=== PATIENT | female | born 1985 | race Caucasian/White ===

== ENCOUNTER 2025-08-04 13:56 | Outpatient (REF) | payer MEDICAID, SELFPAY ==
[2025-08-04 16:06] LABS: MANUAL DIFF FLAG NO
[2025-08-04 16:10] LABS: Hematocrit 43.4 % (37.0-47.0); Hemoglobin 14.4 g/dl (12.0-16.0); Imm Gran Abs Auto 0.02 X10*3/uL (0.00-0.03); Imm Gran Pct Auto 0.3 % (0.0-0.4); Lymphocytes Absolute Auto 2.0 X10*3/uL (1.2-4.9); Mean Corpuscular HGB Conc 33.2 g/dl (31.0-35.0); Mean Corpuscular Hemoglobin 31.0 pg (27.0-33.0); Mean Corpuscular Volume 93.5 fL (80.0-98.0); NRBC Abs Auto 0.000 X10*3/uL (0.0-0.012); NRBC Pct Auto 0.0 /100WBC (0.0-0.2); Platelet Count 224 X10*3/uL (160-400); Red Blood Count 4.64 X10*6/uL (4.20-5.50); White Blood Count 7.9 X10*3/uL (4.8-10.8)
[2025-08-04 16:21] LABS: Alanine Aminotransferase 48 U/L (0-31); Albumin Level 4.6 g/dL (3.5-5.0); Alkaline Phosphatase 79 U/L (39-117); Anion Gap 14 (12-20); Aspartate Amino Transferase 47 U/L (5-31); Blood Urea Nitrogen 16 mg/dL (9-16); Calcium 9.4 mg/dL (8.4-10.2); Carbon Dioxide 27 mmol/L (22-29); Chloride 103 mmol/L (96-108); Cholesterol 216 mg/dL (<200); Estimated Glomerular Filt Rate > 60; HDL Cholesterol 79 mg/dL (>40); Potassium 4.4 mmol/L (3.3-5.1); Sodium 140 mmol/L (135-145); Total Protein 7.6 g/dL (6.5-8.0); Triglycerides 246 mg/dL (<150)
--- OUTSIDE RECORDS SUMMARY | 2025-08-04 17:10 | XMS_ITS | Encounter Summary ---
Author Organization [employer] Address [address] [facility] [facility] [address] [place] [address] Care Team Providers Care Washer Hand Name Role Phone Annmarie Patel COMMUNITY DEVELOPMENT AIDE Primary Care Provider [phone] Reason for Visit * Reason Onset Date Comments CHW - New Patient Assistance 05/11/2025 Encounter Details Date Type Department Care Team ([facility] st Contact Info) Description 05/11/2025 Telephone [facility] [address] [place], [place] [phone] Arnaldo River MD [address] [place] [address] CHW - New Patient Assistance Social History Tobacco Use Types Packs/Day Years Used Date Smoking Tobacco: Never Assessed Comments Unknown Sex and Gender Information Value Date Recorded Sex Assigned at Female 07/26/2025 10:30 AM EDT Legal Sex Female 4:30 PM EDT Gender Identity Female 07/26/2025 10:30 AM EDT Sexual Orientation Straight 07/26/2025 10 :30 AM EDT documented as of this encounter Miscellaneous Notes * Telephone Encounter - Prema Gabriel - 05/12/2025 10:19 AM EDT Patient added to [facility] New Patient wait list as 05-12-2025 * Telephone Encounter - Brendon Sesay - 05/11/2025 4:30 PM EDT TC from caller requesting NEW PATIENT visit . DX : EYE ULCER Medical Concern: Twan gave her the wrong contact and it causes a bacterial infection. Insurance name : [email or web address] Location : [facility] Demographic information updated documented in this encounter Plan of Treatment Upcoming Encounters Date Type Department Care Team (Late st Contact Info) Description 08/12/2025 1:00 PM EST Clinical Support [facility] [address] [place] [address] documented as of this encounter Visit Diagnoses Not on filedocumented in this encounter Care Teams Washer Hand Relationship Specialty Start Date End Date Annmarie Patel FNP [address] [place] [address] PCP - General Family Medicine 07/27/25 documented as of this encounter
--- OUTSIDE RECORDS SUMMARY | 2025-08-04 17:10 | XMS_ITS | Clinical Summary ---
Author Organization [facility] Address [address] [facility] [address] [place] [address] Care Team Providers Care Cell Stripper Final Name Role Phone Annmarie Patel Primary Care Provider [phone] Allergies Active Allergy Reactions Criticality Noted Date Comments Penicillins Hives 07/27/2025 Medications Blood Pressure kitIndications:E levated blood pressure reading 1 Units 2 times daily. 1 kit 07/27/2025 Active loratadine (Claritin) 10 MG tablet Take 1 tablet (10 mg) by mouth Once per day. 90 tablet 3 07/27/2025 Active Active Problems No known active problems Encounters Date Type Department Care Team Description 07/27/2025 10:30 AM EDT Office Visit [facility] [address] [place] [phone] Annmarie Patel FNP Adult wellness visit (Primary Dx); Elevated blood pressure reading; Non-seasonal allergic rhinitis, unspecified trigger; Anxiety and depression; Corneal ulcer, unspecified laterality 07/27/2025 Travel 07/26/2025 Telephone [facility] [address] [place] [address] Annmarie Patel FNP Chart Prep 07/20/2025 Patient Outreach [facility] [address] [place] [address] Annmarie Patel FNP Pre-visit Planning (SDOH negative. Tobacco screening negative. ) 07/20/2025 Travel 07/02/2025 Population Health Risk Score [facility] ([facility]) Department [address] [phone] Provider, Population Health Generic 05/11/2025 Telephone [facility] [address] [place] [address] Arnaldo River MD CHW - New Patient Assistance from Last 3 Months Family History Medical History Relation Name Comments Cancer Father Colon cancer Father's Brother Relation Name Status Comments Father Father's Brother Social History Tobacco Use Types Packs/Day Years Used Date Smoking Tobacco: Never Passive Smoke Exposure: Never Smokeless Tobacco: Never Tobacco Cessation:Counseling Given: Not Answered Alcohol Use Standard Drinks/Week Comments Yes 2 (1 standard drink = 0.6 oz pur e alcohol) weekends Depression Answer Date Recorded Patient Health Questionnaire-9 Score 5 07/27/2025 Patient Health Questionnaire-9 Score 5 07/27/2025 Last PHQ-9: Questionnaire Data Not on file 1 Housing Stability Answer Date Recorded What is your housing situation today? I have ángel rodriguez 07/20/[address] you li ve. Do you have problems with any of the following? None of the above 07/20/2025 Food Insecurity Answer Date Recorded Within the past 12 months, y ou worried that your food would run out before you got money to buy more: Never True 07/20/2025 Within the past 12 months,th e food you bought just didn't last and you didn't have enough money to get more: Never True Transportation Answer Date Recorded In the past 12 months, has l ack of transportation kept you from medical appts, meetings, work or from getting things needed for daily living? No 07/20/2025 Utilities Answer Date Recorded In the past 12 months, has t he electric, gas, oil or water company threatened to shut off services in your home? No 07/20/2025 Depression Answer Date Recorded Patient Health Questionnaire-2 Score 0 07/27/2025 Internet Access Answer Date Recorded Internet Access Q1 Yes 07/20/2025 Internet Access Q2 Not on file 07/20/2025 Comments Unknown Sex and Gender Information Value Date Recorded Sex Assigned at Female 07/26/2025 10:30 AM EDT Legal Sex Female 4:30 PM EDT Gender Identity Female 07/26/2025 10:30 AM EDT Sexual Orientation Straight 07/26/2025 10 :30 AM EDT Last Filed Vital Signs Vital Sign Reading Time Taken Comments Blood Pressure 142/90 07/27/2025 11:02 AM EDT Pulse 74 07/27/2025 10:45 AM EDT Temperature 36.6 C (97.9 F) 07/27/2025 10:45 AM EDT Respiratory Rate 16 07/27/2025 10:45 AM EDT Oxygen Saturation 97% 07/27/2025 10:45 AM EDT Inhaled Oxygen Concentration - - Weight 62.8 kg (138 lb 8 oz) 07/27/2025 10:45 AM EDT Height 158.1 cm (5' 2.26 ) 07/27/2025 10:45 AM E DT Body Mass Index 25.12 07/27/2025 10:45 AM EDT Plan of Treatment Upcoming Encounters Date Type Department Care Team ([facility] st Contact Info) Description 08/12/2025 1:00 PM EST Clinical Support [address] [address] Health Maintenance Due Date Last Done Comments HIV Screening 1984 Family Planning (PISQ) 1999 HPV Vaccines (1 - 3-dose series) 1999 Hepatitis C Screening 2002 Hepatitis B Vaccines (1 of 3 - 19+ 3-dose series) 2003 Pap Smear 2005 Cervical Cancer Screening 2014 HPV/Cotest 2014 Mammogram 2024 DTaP/Tdap/Td Vaccines (1 - Tdap) 08/24/2025 Postponed from 04/12 (Other Patient Reasons) Influenza Vaccine (#1) 2026 Postp oned from 05/31/2025 (Patient Refused) Alcohol/Substance Use Screening 07/27/2026 07/27/2025 COVID-19 Vaccine (1 - 2023-2 5 season) 2026 Postponed from 05/31 (Patient Refused) Depression Screening 07/27/2026 07/27/2025, 07/27/2025 Disability Screening 07/27/2026 07/27/2025 SDOH Screening 07/27/2026 07/27/2025 Tobacco Screening 07/27/2026 07/27/2025 Zoster Vaccines (1 of 2) 2034 RSV Patients and Patients Aged 60 years or older (1 - 1-dose 75+ series) 2059 HIB Vaccines Aged Out No longer eligi ble based on patient's age to complete this topic Hepatitis A Vaccines Aged Out No long er eligible based on patient's age to complete this topic IPV Vaccines Aged Out No longer eligi ble based on patient's age to complete this topic Meningococcal B Vaccine Aged Out No l onger eligible based on patient's age to complete this topic Meningococcal Vaccine Aged Out No henry radha eligible based on patient's age to complete this topic Pneumococcal Vaccine: Pediatrics (0 to 5 Years) and At-Risk Patients (6 to 49) Years Aged Out No longer eligible b ased on patient's age to complete this topic RSV under 20 months Aged Out No longe r eligible based on patient's age to complete this topic Rotavirus Vaccines Aged Out No longer eligible based on patient's age to complete this topic Procedures Procedure Name Priority Date/Time Associated Diagnosis Comments LIPID PANEL, STANDARD Routine 08/04/2025 2:09 PM EST Adult wellness visit CBC WITH AUTO DIFFERENTIAL Routine 08/04/2025 2:09 PM EST Adult wellness visit COMPREHENSIVE METABOLIC PANEL Routine 08/04/2025 2:09 PM EST Adult wellness visit from Last 3 Months Results * CBC auto differential (08/04/2025 2:09 PM EST) White Blood Count 7.9 4.8 - 10.8 X10*3/uL [facility] Red Blood Count 4.64 4.20 - 5.50 X10*6/uL [facility] Hemoglobin 14.4 12.0 - 16.0 g/dl [facility] Hematocrit 43.4 37.0 - 47.0 % [facility] Mean Corpuscular Volume 93.5 80.0 - 98.0 fL [facility] Mean Corpuscular Hemoglobin 31.0 27.0 - 33.0 pg [facility] Mean Corpuscular HGB Conc 33.2 31.0 - 35.0 g/dl [facility] Red Cell Distribution Width 13.4 11.0 - 16.0 % [facility] Platelet Count 224 160 - 400 X10*3/uL [facility] Mean Platelet Volume 11.9 9.4 - 12.3 fL [facility] Neutrophils Percent Auto 67.3 45 - 73 % [facility] Imm Gran Pct Auto 0.3 0.0 - 0.4 % [facility] Lymphocytes Percent Auto 24.8 20 - 40 % [facility] Monocytes Percent Auto 5.7 2 - 11 % [facility] Eosinophils Percent Auto 1.3 0 - 4 % [facility] Basophils Percent Auto 0.6 0 - 2 % [facility] NRBC Pct Auto 0.0 0.0 - 0.2 /100WBC [facility] Neutrophils Absolute Auto 5.3 2.0 - 8.3 x10*3/uL [facility] Imm Gran Abs Auto 0.02 0.00 - 0.03 X10*3/uL [facility] Lymphocytes Absolute Auto 2.0 1.2 - 4.9 X10*3/uL [facility] Monocytes Absolute Auto 0.5 0.1 - 1.2 X10*3/uL [facility] Eosinophils Absolute Auto 0.1 0.0 - 0.4 X10*3/uL [facility] Basophils Absolute Auto 0.1 0.0 - 0.2 X10*3/uL [facility] NRBC Abs Auto 0.000 0.0 - 0.012 X10*3/uL [facility] Blood Venous blood specimen / Unknown 08/04/2025 2:09 PM EST 08/04/2025 4:02 PM EST us Annmarie Patel [employer] LAB BLOOD ORDERABLES Final Res ult [facility] [address] [place] [address] [phone] * (ABNORMAL) Lipid Panel, Standard (08/04/2025 2:09 PM EST) Triglycerides 246(H) <150 mg/dL [facility] Comment:Desirable Triglyceri de: less than 150 mg/dLBorderline High Triglyceride 150-199 mg/dLHigh Triglyceride: 200-499 mg/dLVery High Triglyceride: greater than or equal to 5OO mg/dL Cholesterol 216(H) <200 mg/dL [facility] Comment:Desirable Cholestero l: less than 200 mg/dLBorderline High Cholesterol: 200-239 mg/dLHigh Cholesterol: greater than 239 mg/dL LDL Cholesterol Calculated 88 <100 mg/dL [facility] Comment:Desirable LDL: less than 100 mg/dLNear Optimal/Above Optimal LDL: 110- 129 mg/dLBorderline High LDL: 130-159 mg/dLHigh LDL: 160-189 mg/dLVery High LDL: greater than or equal to 190 mg/dL HDL Cholesterol 79 >40 mg/dL [facility] Comment:Desirable HDL: great er than 40 mg/dL Note: This HDL assay may give artificially low results in patients with liver disease. Blood Venous blood specimen / Unknown 08/04/2025 2:09 PM EST 08/04/2025 4:02 PM EST us Annmarie Patel [facility] LAB BLOOD ORDERABLES Final Res ult [facility] [address] [place] [phone] * (ABNORMAL) Comprehensive Metabolic Panel (08/04/2025 2:09 PM EST) Sodium 140 135 - 145 mmol/L [facility] Potassium 4.4 3.3 - 5.1 mmol/L [facility] Comment:Slight Hemolysis.Int erpret result with caution. Chloride 103 96 - 108 mmol/L [facility] Carbon Dioxide 27 22 - 29 mmol/L [facility] Anion Gap 14 12 - 20 [facility] Urea Nitrogen (BUN) 16 9 - 16 mg/dL [facility] Creatinine, Serum 0.78 0.5 - 1.4 mg/dL [facility] Estimated Glomerular Filt Rate >60 [facility] Comment:Chronic Kidney Disea se: Estimated GFR < 60 mL/min/1.60s1Ezpdls Kidney Disease: Estimated GFR < 15 mL/min/1.73m2 Glucose 119(H) 60 - 115 mg/dL [facility] Calcium 9.4 8.4 - 10.2 mg/dL [facility] Bilirubin, Total 0.7 0.0 - 1.0 mg/dL [facility] Aspartate Amino Transferase 47(H) 5 - 31 U/L [facility] Comment:Slight Hemolysis.Int erpret result with caution. Alanine Aminotransferase 48(H) 0 - 31 U/L [facility] Total Protein 7.6 6.5 - 8.0 g/dL [facility] Albumin Level 4.6 3.5 - 5.0 g/dL [facility] Alkaline Phosphatase 79 39 - 117 U/L [facility] Blood Venous blood specimen / Unknown 08/04/2025 2:09 PM EST 08/04/2025 4:02 PM EST us Annmarie ENRIQUEZ LAB BLOOD ORDERABLES Final Res ult Performing Organization Address City/State/[facility] Co de Phone Number [facility] [address] [place] [phone] from Last 3 Months Insurance [facility] C3 Care Teams Cell Stripper Final Relationship Specialty Start Date End Date Annmarie Patel FNP [address] [place] [address] PCP - General Family Medicine 07/27/25
[2025-08-05 08:36] LABS: HBS Num1 0.99 mIU/mL (0-7.99); HBc Num1 0.07 S/CO (0.00-0.79); HBsAGNum1 0.40 S/CO (0.00-0.99); HIV Num 1 0.07 S/CO (0.00-0.99); Hepatitis B Surface Antigen Negative (Negative); ~HepC Num1 0.08 S/CO (0.00-0.79); ~Hepatitis B Surface Antibody NONREACTIVE (Nonreactive); ~Hepatitis C Antibody Nonreactive (Nonreactive)
== END 2025-08-04 13:57 | disposition home or self-care (01) ==
LOC: HO.HHCL 13:56
PROVIDERS: PCP Nurse Practitioner Family; Visit Provider Nurse Practitioner Family
DX: Z00.00 Encounter for general adult medical examination without abnormal findings (principal); Z11.59 Encounter for screening for other viral diseases; Z11.4 Encounter for screening for human immunodeficiency virus [HIV]
CPT/HCPCS: 36415; 80053; 80061; 85025; 86704; 86706; 86803; 87340; 87389